=== PATIENT | male | born 1975 | race Caucasian/White ===

== ENCOUNTER 2020-11-26 16:25 | Emergency (ER) | payer BC, SELFPAY ==
[2020-11-26 16:26] VITALS: BP 189/109; PULSE 118; RESP 17; TEMP 36.4; O2SAT 100; BMI 43.5
--- NOTE | 2020-11-26 16:29 | VDLE_ITS ---
Reason For Study: RT lateral calf pain RIGHT GSV is normal. CFV is compressible, spontaneous, phasic, competent and demonstrates normal augmentation. FV is compressible, spontaneous, phasic, competent and demonstrates normal augmentation. POP V is compressible, spontaneous, phasic, competent and demonstrates normal augmentation. T/P Trunk is compressible. PTV & PERV are compressible (same image labeled PERV) SSV is compressible. Procedure This is a venous duplex using B-mode, color flow and spectral Doppler. Exam performed portable in ED. The study was technically difficult. Due to body habitus. A preliminary report was called and/or faxed to ED. VL/Venous Duplex US, Unilateral Interpretation Summary Deep veins of the right lower extremity are patent and compressible segmentally . There is no evidence of right lower extremity deep vein thrombosis. Valvular competence ramon ears intact within the proximal deep venous system on the right . The right great saphenous vein a ppears patent and compressible segmentally. The right small saphenous vein is patent and compress ible. Ordering Physician: Pippa Joyner Referring Physician: Kathryn Ghosh Performed By: Ailin Pelayo, MYLENE, RVT
--- NOTE | 2020-11-26 19:04 | EDS_ITS ---
HPI History of Present Illness Chief Complaint: Lower Extremity Injury Informant: patient Narrative Narrative: Patient is a 45-year-old male that denies any significant past medical history presenting with redness and pain to his right calf. Nuys any trauma or injury. He was concerned he had a blood clot and is going out of town tomorrow so he came to emergency room to be evaluated further. Denies any fever or chills. Denies any systemic symptoms. Denies any history of blood clots or notes his mother had 1. Denies associated numbness or tingling. PFSH PFSH Home Medications cephalexin 500 mg PO Q6 #40 cap 11/26/20 [Rx Last Taken Unknown] Allergy/AdvReac Type Severity Reaction Status Date / Time No Known Allergies Allergy Verified 11/26/20 16:27 Surgical History Hx of tonsillectomy Social History Smoking Status: Never smoker ROS ROS ED Constitutional Constitutional ED: Denies chills, fever(s) or malaise Eyes Eyes: Denies blurry vision or loss of vision ENT ENT ED: Denies rhinorrhea or sore throat Cardiovascular Cardiovascular: Denies chest pain or dizziness Respiratory/Chest Respiratory/Chest: Denies cough or dyspnea Gastrointestinal Gastrointestinal: Denies nausea or vomiting Genitourinary Genitourinary ED: Denies dysuria or hematuria Musculoskeletal Musculoskeletal: Denies arthralgias or myalgias Integumentary Reports rash; Denies wounds Neurologic Neurologic: Denies focal weakness or headache(s) Psychiatric Psychiatric: Denies anxiety or behavioral changes EXAM Physical Exam Const Vital Signs: 11/26/20 16:26 Temperature 97.6 F L Temperature Source Temporal Pulse Rate 118 H Respiratory Rate 17 Blood Pressure 189/109 H Blood Pressure Mean 135 Pulse Ox 100 Oxygen Delivery Method Room Air Positive well nourished, well developed and no apparent distress General Appearance ED: well developed HEENT Reports normocephalic and moist mucous membranes HEENT Narrative: Normal tympanic membranes bilaterally atraumatic Nose: no nasal discharge External Ear: external ears normal Mouth ED: Yes moist mucous membranes normal Eyes PERRL and EOMs intact bilaterally Neck full ROM and no meningeal signs Chest Wall inspection of chest normal Resp normal respiratory effort and normal air movement Cardio regular rate and regular rhythm GI normal to inspection, nondistended, normoactive bowel sounds Extremity normal to inspection and full ROM Extremity Narrative: 2+ bilateral PT pulses General Extremety ED: Negative for edema General Extremity: Negative for edema Neuro oriented x3 and no focal motor deficits Sensorium / Orientation: alert Psych mental status grossly normal and thought process normal Skin no rashes or lesions noted and no wounds Skin Narrative: Patient has irregular 6 cm area of warmth and erythema on his right lateral calf. No palpable cords. No associated fluctuance. MDM MDM MDM Narrative Medical decision making narrative: Patient evaluated for 1 day of right leg redness and swelling. He appears nontoxic in no acute distress. His triage vital signs are significant for tachycardia and hypertension however his tachycardia resolved and I evaluated him. Venous duplex does not show any DVT. There is no comment about any superficial thrombophlebitis. Patient be treated as if he has a cellulitis. No signs of abscess. Started on Keflex. Counseled on return precautions. Radiography Diagnostic Testing: Radiology Impression Venous Doppler Study 11/26/20 16:29 Interpretation Summary Deep veins of the right lower extremity are patent and compressible segmentally. There is no evidence of right lower extremity deep vein thrombosis. Valvular competence appears intact within the proximal deep venous system on the right . The right great saphenous vein appears patent and compressible segmentally. The right small saphenous vein is patent and compressible. Ordering Physician: Pippa Joyner Referring Physician: Kathryn Ghosh Performed By: Ailin Pelayo RDCS, RVT Discharge Plan Triage Chief Complaint: Lower Extremity Injury ED Provider: Pippa Joyner Dx/Rx/DC Orders Clinical Impression: Cellulitis of leg, right Instructions: ED Cellulitis Prescriptions: New cephalexin 500 mg capsule 500 mg PO Q6 Qty: 40 RF: 0 Primary Care Provider: Kathryn Ghosh Referrals: Kathryn Ghosh MD [Primary Care Provider] - Disposition Disposition: Home, Self Care
[2020-11-26 19:10] VITALS: BP 141/86; PULSE 86; RESP 16; O2SAT 97
[2020-11-26 19:25] VITALS: BP 141/86; PULSE 86; RESP 16; O2SAT 97
== END 2020-11-26 19:26 | disposition home or self-care (01) ==
LOC: ED 19:22
PROVIDERS: Emergency Provider Emergency Medicine; PCP Internal Medicine
DX: L03.115 Cellulitis of right lower limb (principal)
CPT/HCPCS: 93971; 99282